=== PATIENT | female | born 1990 | race Caucasian/White ===

== ENCOUNTER 2023-04-20 18:17 | Outpatient (CLI) | payer BC ==
--- NOTE | 2023-04-20 18:44 | XRAY Report ---
PROCEDURE: Ankle 3 View LT INDICATIONS: LEFT ANKLE SPRAIN TECHNIQUE: 3 views of the ankle were acquired. COMPARISON: None. FINDINGS: Bones: No fractures or dislocations. Ankle mortise is normally aligned. No suspicious bony lesions . Soft tissues: No substantial tibiotalar joint effusion. Achilles tendon appears normal. There is l ateral malleolus soft tissue swelling. IMPRESSION: No acute bony abnormality. Lateral malleolus soft tissue swelling. If there is continued clinical concern for internal soft tissue derangement, consider further evalua tion with outpatient MRI. Reviewed by: Oswaldo Lala MD on 04/20/2023 6:43 PM PDT Approved by: Oswaldo Lala MD on 04/20/2023 6:43 PM PDT Station ID: [id number]
== END 2023-04-20 23:59 | disposition home or self-care (01) ==
LOC: DI.S 18:17
PROVIDERS: ATTEND Physician Assistant Medical
DX: S93.492A Sprain of other ligament of left ankle, initial encounter (principal)

== ENCOUNTER 2024-01-09 21:52 | Emergency (ER) | payer BC ==
[2024-01-09 22:17] VITALS: BP 106/74; O2SAT 99
[2024-01-09 22:35] LABS: BASOPHILS # (AUTO) 0.1 10^3/uL (0.0-0.1); BASOPHILS % (AUTO) 1.1 %; EOSINOPHILS # (AUTO) 0.3 10^3/uL (0.0-0.7); EOSINOPHILS % (AUTO) 4.1 %; HCT - HEMATOCRIT 36.1 % (37.0-47.0); HGB - HEMOGLOBIN 11.9 g/dL (12.0-16.0); MEAN CORPUSCULAR HEMOGLOBIN 28.2 pg (27.0-31.0); MEAN CORPUSCULAR VOLUME 85.5 fL (81.0-99.0); MEAN PLATELET VOLUME 9.1 fL (7.9-10.8); MONOCYTES # (AUTO) 0.5 10^3/uL (0.0-1.0); MONOCYTES % (AUTO) 6.6 %; NEUTROPHILS # (AUTO) 4.2 10^3/uL (1.5-6.6); NEUTROPHILS % (AUTO) 60.1 %; PLT - PLATELET COUNT 226 10^3/uL (130-450); RED BLOOD COUNT 4.22 10^6/uL (4.20-5.40); RED CELL DISTRIBUTION WIDTH 14.2 % (12.0-15.0)
[2024-01-09 22:55] LABS: ALBUMIN 4.7 g/dL (3.2-5.5); ALBUMIN/GLOBULIN RATIO 1.7 (1.0-2.2); ALKALINE PHOSPHATASE 46 IU/L (42-121); ALT ALANINE AMINOTRANSFERASE 9 IU/L (10-60); AST ASPARTATE AMINOTRANSFERASE 16 IU/L (10-42); BILIRUBIN,TOTAL 0.4 mg/dL (0.2-1.0); BUN - BLOOD UREA NITROGEN 8 mg/dL (6-20); CALCIUM 9.7 mg/dL (8.5-10.3); CARBON DIOXIDE - CO2 27 mmol/L (21-32); CHLORIDE 102 mmol/L (101-111); CREATININE 0.8 mg/dL (0.6-1.3); GFR - MDRD 83 (>89); GLUCOSE 98 mg/dL (74-104); LIPASE 42 U/L (11-82); POTASSIUM 3.5 mmol/L (3.5-4.5); SODIUM 135 mmol/L (135-145); TOTAL PROTEIN 7.5 g/dL (6.4-8.9)
--- NOTE | 2024-01-09 22:55 | ED Physician Documentation ---
PD HPI ABD PAIN - Stated complaint Stated Complaint: /CRAMPING - Chief complaint Chief Complaint: Abd Pain - History obtained from History obtained from: Patient - Additional information Additional information: 33-year-old G0, otherwise generally healthy save migraines presents accompanied by her for pelvic pain. 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 Over the last few days has developed more severe pelvic pain and cramping without discharge or bleeding at this point. Pain was initially on the right but now mo re severe on the left. No nausea or vomiting. PD PAST MEDICAL HISTORY - Past Medical History Past Medical History: Yes Cardiovascular: None Respiratory: None Neuro: Migraines Endocrine/Autoimmune: None GI: None BIOMEDICAL EQUIPMENT SUPPORT SPECIALIST: None : None HEENT: None Psych: None Musculoskeletal: None Derm: None - Past Surgical History Past Surgical History: No - Present Medications Home Medications: Ambulatory Orders Medication Instructions Recorded Confirmed Atogepant [Qulipta] 60 mg PO DAILY 01/09/24 DULoxetine [Cymbalta] 60 mg PO DAILY 01/09/24 HYDROcod/ACETAM 5/325 [Brandon 5/325] 1 - 2 tablet PO Q6H PRN #14 tablet 01/10/24 - Allergies Allergies/Adverse Reactions: Allergies Allergy/AdvReac Type Severity Reaction Status Date / Time No Known Drug Allergies Allergy Verified 01/09/24 22:14 - Social History Does the pt smoke?: No Smoking Status: Never smoker Does the pt drink ETOH?: Yes Does the pt have substance abuse?: No - Immunizations Immunizations are current?: Yes - POLST Patient has POLST: No PD ED PE NORMAL - Vitals Vital signs reviewed: Yes - General General: Alert and oriented X 3, No acute distress - Abdomen Abdomen: Normal bowel sounds, Soft, Other (Tender in the left hemipelvis without surgical signs) - Neuro Neuro: Alert and oriented X 3 Results - Vitals Vitals: Vital Signs - 24 hr 01/09/24 22:04 Temperature 36.3 C L Heart Rate 65 Respiratory 17 Rate Blood Pressure 106/74 O2 Saturation 99 Oxygen O2 Source Room air - Labs Labs: Laboratory Tests 01/09/24 01/09/24 01/09/24 22:28 22:28 23:50 WBC 7.0 RBC 4.22 Hgb 11.9 L Hct 36.1 L MCV 85.5 MCH 28.2 MCHC 33.0 RDW 14.2 Plt Count 226 MPV 9.1 Neut # (Auto) 4.2 Lymph # (Auto) 2.0 Ransom # (Auto) 0.5 Eos # (Auto) 0.3 Baso # (Auto) 0.1 Absolute Nucleated RBC 0.00 Nucleated RBC % 0.0 Sodium 135 Potassium 3.5 Chloride 102 Carbon Dioxide 27 Anion Gap 6.0 BUN 8 Creatinine 0.8 Estimated GFR (MDRD) 83 L Glucose 98 Calcium 9.7 Total Bilirubin 0.4 AST 16 ALT 9 L Alkaline Phosphatase 46 Total Protein 7.5 Albumin 4.7 Globulin 2.8 Albumin/Globulin Ratio 1.7 Lipase 42 Beta HCG, Quant < 0.6 Urine Color LIGHT YELLOW Urine Clarity CLEAR Urine pH 7.5 Ur Specific Baldwin 1.010 Urine Protein NEGATIVE Urine Glucose (UA) NEGATIVE Urine Ketones NEGATIVE Urine Occult Blood NEGATIVE Urine Nitrite NEGATIVE Urine Bilirubin NEGATIVE Urine Urobilinogen 0.2 (NORMAL) Ur Leukocyte Esterase NEGATIVE Ur Microscopic Review NOT INDICATED Urine Culture Comments NOT INDICATED PD Medical Decision Making - ED course ED course: 33-year-old woman presents with acute pelvic pain. Differential would depend on status but she does not think she is. Workup pending on signout to Dr. Johnson at 11 PM. Departure - Departure Disposition: 01 Home, Self Care Clinical Impression: Pelvic pain in female Condition: Good Record reviewed to determine appropriate education?: Yes Instructions: ED Pelvic Pain [facility] Prescriptions: HYDROcod/ACETAM 5/325 [Brandon 5/325] 1 - 2 tablet PO Q6H PRN #14 tablet PRN Reason: Pain Comments: There were no concerning nor diagnostic findings on tonight's tests, including the blood tests, urinalysis, and the ultrasound. The cause of your symptoms is not apparent at this time. I recommend that you contact both your primary care provider and your CLIENT SERVICE SUPERVISOR soon as their offices open to arrange for the next available appointment with each of these practitioners. I electronically submitted a prescription for Vicodin (narcotic/opiate pain medication) to the [facility] in [place]. I am prescribing a short course of narcotic pain medication for you. These are potentially dangerous and addictive medications that should be used carefully. These medications may constipate you. Take an bxis-dam-dnybaor stool softener (docusate) twice daily with plenty of water while taking these medications. If you go 24 hours without a bowel movement, take rlxu-uge-wucxrro miralax, per package instructions. Do not drink or drive while taking these medications. If you received narcotic or sedating medications while in the emergency department, do not drive for 24 hours. Store this medication in a safe, secure place and out of reach of children. It is a violation of federal law to give or sell this medication to another person or to use in a manner other than prescribed. The ED will not refill narcotic prescriptions, including prescriptions lost or stolen. To dispose of unwanted medications: 1. [facility] at [address] in [place] has a medication drop box. They accept prescription medications (in pill form) Monday through Monday 9:00 a.m. to 5:00 p.m. 2. [facility] accepts prescription medications (in pill form only) for disposal year round. Call for more info rmation. 3. Contact the [facility] for the next [facility] sponsored prescription drug collection event. , [phone], or [phone]; Forms: Activity restrictions Discharge Date/Time: 01/10/24 00:58
[2024-01-09] MEDS: HYDROcod/ACETAM 5/325 MG TABLET PO STA (22:59)
--- NOTE | 2024-01-09 23:58 | Ultrasound Report ---
PROCEDURE: Pelvic w/Doppler Complete INDICATIONS: Pelvic pain TECHNIQUE: Real-time scanning was performed of the pelvic organs, with image documentation. Additional endovagi nal scanning was necessary due to incomplete visualization of the adnexal and endometrial structures by transabdominal scanning. Doppler interrogation was performed of the ovaries bilaterally. COMPARISON: None. FINDINGS: Uterus: Uterus is anteverted and normal in size at 7.8 x 3.3 x 4.1 cm. The myometrium is homogeneou s. The endometrium measures 9.1 mm in combined thickness. Ovaries: The right ovary measures 5.1 x 1.2 x 2.8 cm, with a calculated ovarian volume of 9 point cc . The left ovary measures 4.9 x 1.2 x 2.7 cm, with a calculated ovarian volume of 8 cc. Appropriate blood flow to the ovaries with Doppler interrogation. Less than 12 follicles can be seen in each o vary. No adnexal masses are seen. No cystic lesions measuring greater than 3 cm. Other: No pathologic free abdominal or pelvic fluid. IMPRESSION: No torsion at time of exam. Otherwise, unremarkable. Reviewed by: Yanira Carney MD on 01/09/2024 11:56 PM PDT Approved by: Yanira Carney MD on 01/09/2024 11:56 PM PDT Station ID: [id number]
[2024-01-10 00:05] LABS: BILIRUBIN,URINE NEGATIVE (NEGATIVE); GLUCOSE, URINE (UA) NEGATIVE (NEGATIVE); KETONES,URINE (UA) NEGATIVE (NEGATIVE); LEUKOCYTE ESTERASE, URINE NEGATIVE (NEGATIVE); NITRITE,URINE NEGATIVE (NEGATIVE); OCCULT BLOOD,URINE NEGATIVE (NEGATIVE); PH,URINE 7.5 PH (5.0-7.5); PROTEIN,URINE NEGATIVE (NEGATIVE); UROBILINOGEN,URINE 0.2 (NORMAL) E.U./dL (NORMAL)
[2024-01-10 00:07] LABS: CLARITY,URINE CLEAR (CLEAR)
--- NOTE | 2024-01-10 01:36 | ED Physician Documentation ---
ED Addendum - Addendum Addendum: 01/10/24 03:07 I received signout/turnover of care on this patient from Dr. Olivares; please see his note for complete H&P. Patient's workup is unremarkable and nondiagnostic. Essentially normal CBC (hemoglobin/hematocrit are barely below the normal range with hemoglobin 11.9), normal ER abdominal panel, normal urinalysis, negative hCG, and unremarkable pelvic ultrasound. The cause of patient's symptoms is not apparent at this time. I discussed these results with the patient. She is in NAD and says that the Vicodin that was given earlier in her stay has helped substantially with her pain. I instructed her to follow-up with her PCP as soon as can be arranged. I am providing her with a work note/excuse for the next 2 days, as well as a prescription for short course of Vicodin. Return precautions were reviewed.
== END 2024-01-10 00:58 | disposition home or self-care (01) ==
LOC: ED 21:52
DX: R10.2 Pelvic and perineal pain (principal)
CPT/HCPCS: 36415; 76856; 80053; 81003; 83690; 84702; 85025; 93975; 99283; 99284; A9270; 81001; 87086

== ENCOUNTER 2024-01-16 08:00 | Outpatient (CLI) | payer BC ==
[2024-01-16 20:26] LABS: BACTERIAL VAGINOSIS DNA NEGATIVE (NEGATIVE); CANDIDA GLABRATA DNA NEGATIVE (NEGATIVE); CANDIDA GROUP DNA NEGATIVE (NEGATIVE); CANDIDA KRUSEI DNA NEGATIVE (NEGATIVE); TRICHOMONAS VAGINALIS DNA NEGATIVE (NEGATIVE)
[2024-01-16 22:04] LABS: CHLAMYDIA TRACHOMATIS DNA NEGATIVE (NEGATIVE); NEISSERIA GONORRHOEAE DNA NEGATIVE (NEGATIVE)
== END 2024-01-16 23:59 | disposition home or self-care (01) ==
LOC: LAB 08:00
PROVIDERS: ATTEND Nurse Practitioner Family
DX: R10.2 Pelvic and perineal pain (principal)
CPT/HCPCS: 81514; 87255; 87491; 87591; 87661

== ENCOUNTER 2024-01-17 13:37 | Outpatient (CLI) | payer BC ==
[2024-01-18 08:12] LABS: HIV SCREEN 4TH GENERATION Non Reactive (Non Reactive)
[2024-01-18 09:11] LABS: RPR Non Reactive (Non Reactive)
== END 2024-01-17 13:38 | disposition home or self-care (01) ==
LOC: LAB 13:37
PROVIDERS: ATTEND Nurse Practitioner Family
DX: R10.2 Pelvic and perineal pain (principal)
CPT/HCPCS: 36415; 86592; 86803; 87389

== ENCOUNTER 2024-01-19 16:00 | Outpatient (CLI) | payer BC ==
--- NOTE | 2024-01-20 14:29 | Ultrasound Report ---
PROCEDURE: Pelvic w/Transvaginal INDICATIONS: PELVIC PAIN TECHNIQUE: Real-time scanning was performed of the pelvic organs, with image documentation. Additional endovagi nal scanning was necessary due to incomplete visualization of the adnexal and endometrial structures by transabdominal scanning. COMPARISON: X-ray pelvis 01/09/2024 FINDINGS: Uterus: Uterus is anteverted and normal in size at 8.3 x 3.6 x 5.2 cm. The myometrium is homogeneou s. The endometrium measures 1.1 mm in combined thickness. Ovaries: The right ovary measures 3.2 x 2.7 x 2.3 cm, with a calculated ovarian volume of 10.3 cc. The left ovary measures 2.6 x 1.2 x 1.6 cm, with a calculated ovarian volume of 2.5 cc. The ovaries have a normal sonographic appearance. Less than 12 follicles can be seen in each ovary. No adnexal masses are seen. No cystic lesions measuring greater than 3 cm. Other: No pathologic free abdominal or pelvic fluid. IMPRESSION: No visualized cause of pain. Reviewed by: Yanira Carney MD on 01/20/2024 2:28 PM PDT Approved by: Yanira Carney MD on 01/20/2024 2:28 PM PDT Station ID: [id number]
== END 2024-01-19 16:01 | disposition home or self-care (01) ==
LOC: DI 16:00
PROVIDERS: ATTEND Physician Assistant
DX: R10.2 Pelvic and perineal pain (principal)